=== PATIENT | female | born 1950 | race Caucasian/White ===

== ENCOUNTER 2022-08-28 12:21 | Emergency (ER) | payer MEDICARE, SELFPAY ==
[2022-08-28 12:26] VITALS: BP 215/100; PULSE 71; RESP 18; TEMP 36.7; O2SAT 98; BMI 28.5
--- NOTE | 2022-08-28 12:33 | ED_ITS ---
HPI - Headache General: Chief Complaint: Headache Stated Complaint: BC sent for migraines Time Seen by Provider: 08/28/22 12:33 History of Present Illness: Ms Reyes is a 71-year-old lady with history of headaches presenting to the emergency department for atypical headache. She r eports migraines as a child and very infrequent headaches since that time. Typically when she does get a headache it is right frontal throbbing with associated generalized malaise however improves with sleep. She notes headache onset gradually approximately 4 days ago which has persisted. She has unsteady feeling when she walks and also word finding difficulty which is atypical for her headaches. She was seen at [facility] and referred to the emergency department for further evaluation. Intensity symptoms is moderate to severe. Course has persisted. No other specific changes in health, exacerbating, or alleviating factors identified. Onset (ago): day(s) Onset description: gradually Location: frontal Severity: moderate Quality & Timing: throbbing Exacerbating factors: none Relieving factors: nothing Associated symptoms: Reports eye redness, malaise and other Review of Systems General: Reports: 10 or more systems reviewed and unremarkable except in HPI and below Const: Reports: malaise PFS ED PFSH: Medical History (Updated 09/05/22 @ 00:00 by DAE Gann) No significant past medical history Surgical History (Updated 08/28/22 @ 13:02 by Gavin Sanchez MD) No significant past surgical history Physical Exam Const: COMMON NORMALS: patient oriented x3 and alert GENERAL APPEARANCE: cooperative and well developed HENMT: COMMON NORMALS: normocephalic and atraumatic HEAD & SCALP: norm ocephalic and atraumatic THROAT: posterior oropharynx normal Eye: COMMON NORMALS: conjunctivae normal CONJUNCTIVA: Yes conjunctivae normal SCLERA: sclerae normal Neck/C-Spine: COMMON NORMALS: supple GENERAL: Yes trachea midline Resp: COMMON NORMALS: clear to auscultation bilaterally EFFORT & INSPECTION: Yes able to speak in complete sentences AUSCULTATION: clear to auscultation bilaterally Cardio: COMMON NORMALS: regular rate and regular rhythm RATE: regular rate RHYTHM: regular rhythm GI: COMMON NORMALS: Soft to palpation PALPATION: Yes Soft to palpation and No Tenderness to palpation present (GI) Extremity: GENERAL: Yes normal exam except as noted and No edema Neuro: COMMON NORMALS: patient oriented x3, CN's II-XII intact bilaterally, moves all extremities, no focal motor deficits and no sensory deficits noted SENSORIUM/ORIENTATION: Yes alert and No Orientation impaired OTHER: Mild word finding difficulty, speech normal Psych: COMMON NORMALS: mental status grossly normal and Normal thought process present THOUGHT PROCESS: Normal thought process present Course Vital Signs: Vital signs: Vital Signs Temperature 98.0 F 08/28/22 12:26 Pulse Rate 70 08/28/22 14:07 Respiratory Rate 18 08/28/22 12:26 Blood Pressure 183/104 08/28/22 14:51 Pulse Oximetry 98 08/28/22 14:07 Oxygen Delivery Me thod 08/28/22 14:07 MDM - Headache Medical Decision Making 71-year-old lady presenting for headache. No focal neurologic deficits apprecia anna. No meningismus. Headache is atypical in various ways for patient. No leukocytosis or other significant hematologic abnormalities. Metabolic panel with mild hypokalemia. No UTI. CT head is negative for acute pathology, incidental findings discussed. Patient had resolution of headache with migraine cocktail. Most likely etiology of symptoms is headache secondary to headache disorder. The results of ED evaluation were discussed with the patient including prescriptions and/or symptomatic cares (if applicable) including appropriate and responsible use, followup plan, and return precautions. The patient verbalized understanding and felt safe for discharge. Medical Records I reviewed the patient's medical records. Lab Data I reviewed the patient's lab results. 08/28/22 13:06 08/28/22 13:[address] 08/28/22 12:57 IMPRESSION: No CT evidence of acute intracranial hemorrhage, mass or acute infarction. Laboratory Results WBC 8.4 10^3/uL (4.0-10.0) 08/28/22 13:06 RBC 4.99 10^6/uL (4.1-5.3) 08/28/22 13:06 Hgb 14.3 g/dL (11.5-15.3) 08/28/22 13:06 Hct 45.4 % (37.0-47.0) 08/28/22 13:06 MCV 91.0 fl (81-99) 08/28/22 13:06 MCH 28.7 pg (28.0-34.0) 08/28/22 13:06 MCHC 31.5 g/dL (30.0-36.0) 08/28/22 13:06 RDW 12.8 % (12.1-15.1) 08/28/22 13:06 Plt Count 321 10^3/cmm (130-400) 08/28/22 13:06 MPV 11.4 fL (7.4-10.4) H 08/28/22 13:06 Neut % (Auto) 57.0 % 08/28/22 13:06 Lymph % (Auto) 29.3 % 08/28/22 13:06 [place] % (Auto) 8.2 % 08/28/22 13:06 Eos % (Auto) 3.7 % 08/28/22 13:06 Baso % (Auto) 1.4 % 08/28/22 13:06 Neut # (Auto) 4.77 10^3/uL (1.8-7.7) 08/28/22 13:06 Lymph # (Auto) 2.5 10^3/uL (0.8-4.8) 08/28/22 13:06 [place] # (Auto) 0.7 10^3/uL (0.2-0.9) 08/28/22 13:06 Eos # (Auto) 0.3 10^3/uL (0.0-0.8) 08/28/22 13:06 Baso # (Auto) 0.1 10^3/uL (0.0-0.1) 08/28/22 13:06 Nucleated RBC % (auto) 0 % 08/28/22 13:06 Nucleated RBCs # 0.0 /100WBC 08/28/22 13:06 Sodium 136 mmol/L (136-145) 08/28/22 13:06 Potassium 3.1 mmol/L (3.5-5.1) L 08/28/22 13:06 Chloride 98 mmol/L (98-107) 08/28/22 13:06 Carbon Dioxide 27 mmol/L (22-29) 08/28/22 13:06 Anion Gap 14.1 (5-19) 08/28/22 13:06 BUN 15 mg/dL (8-23) 08/28/22 13:06 Creatinine 0.6 mg/dL (0.5-0.9) 08/28/22 13:06 GFR Calculation Not Reportable 08/28/22 13:06 Glucose 90 mg/dL (65-115) 08/28/22 13:06 Calculated Osmolality 282 mOsm/kg (285-295) L 08/28/22 13:06 Calcium 10.4 mg/dL (8.5-10.5) 08/28/22 13:06 Total Bilirubin 0.3 mg/dL (0.15-1.2) 08/28/22 13:06 AST 21 U/L (0-32) 08/28/22 13:06 ALT 18 U/L (0-33) 08/28/22 13:06 Alkaline Phosphatase 76 U/L (35-105) 08/28/22 13:06 Total Protein 8.4 g/dL (6.6-8.7) 08/28/22 13:06 Albumin 4.5 g/dL (3.5-5.2) 08/28/22 13:06 Globulin 3.9 g/dL (1.3-4.6) 08/28/22 13:06 TSH 3.16 uIU/mL (0.27-4.20) 08/28/22 13:06 Urine Color Straw (Yellow) 08/28/22 13:29 Urine Appearance Clear (CLEAR) 08/28/22 13:29 Urine pH 8 (5-7) H 08/28/22 13:29 Ur Specific [place] 1.015 (1.005-1.030) 08/28/22 13:29 Urine Protein Neg (Negative) 08/28/22 13:29 Urine Glucose (UA) Norm (Normal) 08/28/22 13:29 Urine Ketones Negative (Negative) 08/28/22 13:29 Urine Blood Neg (Negative) 08/28/22 13:29 Urine Nitrate Negative (Negative) 08/28/22 13:29 Urine Bilirubin Neg (Negative) 08/28/22 13:29 Prot Sulfosalicylic Acd Negative (Negative) 08/28/22 13:29 Urine Urobilinogen Norm mg/dL (Negative) 08/28/22 13:29 Ur Leukocyte Esterase Negative (Negative) 08/28/22 13:29 Discharge Plan Discharge Patient Disposition: Home Clinical Impression: Headache Condition: Stable Prescriptions: No Action No Known Home Medications Discharge Orders: Discharge ED (Routine); Ordered 08/28/22 Ordered By: Gavin Sanchez Referrals: Iram Fine, [Primary Care Provider] - Discharge Diet: Usual diet Discharge Activity: Increase activity as tolerated Patient Instructions: Migraine Headache (ED) Activity Restrictions/Additional Instructions: Thank you for visiting the emergency department. You were seen and evaluated for headache and associated symptoms. The exact cause of your symptoms is unclear though likely related to underlying headache disorder. We are pleased that this has improved. As discussed your blood pressure was noted to be high, please follow-up with your primary care provider. Return to the emergency department for uncontrolled symptoms, any new neurologic symptoms, or anything else that you are concerned about and feel needs emergency department evaluation. Coding Level of Care Code ED Nut Tightener for Taylor Reina
--- NOTE | 2022-08-28 12:57 | CTR_ITS ---
PROCEDURE INFORMATION: Exam: CT Head Without Contrast Exam date and time: 08/28/2022 1:36 PM Age: 71 years old Clinical indication: Pain; Altered mental status/memory loss; Confusion or disorientation; Headache not specified; Additional info: Unsteady, word finding difficulty, change in headache TECHNIQUE: Imaging protocol: Computed tomography of the head without contrast. Radiation optimization: All CT scans at this facility use at least one of these dose optimization techniques: automated exposure control; mA and/or kV adjustment per patient size (includes targeted exams where dose is matched to clinical indication); or iterative reconstruction. Other protocol: This patient has received 0 known CTs and 0 known cardiac nuclear medicine studies in the 12 months prior to the current study. COMPARISON: No relevant prior studies available. RADIATION DOSE METRICS: Total DLP (mGy-cm): 1100.28 FINDINGS: Brain: No acute intracranial hemorrhage. No edema. No mass effect. There are small ill-defined hypodense areas in the bilateral periventricular white matter suggestive of chronic small vessel ischemic changes. The sulci are dilated in keeping with mild predominantly peripheral brain atrophy. Peripheral subarachnoid space is dilated in the posterior fossa suggestive of peripheral cerebellar atrophy. There is developmental variant of slightly more prominent on the left side licha cisterna magna. Cerebral ventricles: No ventriculomegaly. Paranasal sinuses: Visualized sinuses are unremarkable. No fluid levels. Mastoid air cells: No mastoid effusion. Bones/joints: No acute fracture. No suspicious lytic or sclerotic bone lesions. Soft tissues: Unremarkable. CT/CT head wo con* [id number] IMPRESSION: No CT evidence of acute intracranial hemorrhage, mass or acute infarction.
[2022-08-28] MEDS: sodium chloride 0.9% 1,000 ML 999 ML IV (13:23)
[2022-08-28 13:40] LABS: Add Urine Microscopic? NO; Charge for UA Resulting for Rev
[2022-08-28 13:45] LABS: Bilirubin Urine Neg (Negative); Blood Urine Neg (Negative); Glucose Urine UA Norm (Normal); Ketones Urine Negative (Negative); Leukocyte Esterase Urine Negative (Negative); Nitrate Urine Negative (Negative); Protein Urine Neg (Negative); Specific Gravity, Urine 1.015 (1.005-1.030); Sulfosalicylic Acid Urine Negative (Negative); Urine Appearance Clear (CLEAR); Urine Color Straw (Yellow); Urobilinogen Urine Norm (Negative); pH Urine 8 (5-7)
[2022-08-28 14:01] LABS: Basophils # 0.1 10^3/uL (0.0-0.1); Basophils % 1.4 %; Eosinophils # 0.3 10^3/uL (0.0-0.8); Eosinophils % 3.7 %; Hematocrit 45.4 % (37.0-47.0); Hemoglobin 14.3 g/dL (11.5-15.3); Lymphocytes # 2.5 10^3/uL (0.8-4.8); Lymphocytes % 29.3 %; Mean Corpuscular HGB Conc 31.5 g/dL (30.0-36.0); Mean Corpuscular Hemoglobin 28.7 pg (28.0-34.0); Mean Platelet Volume 11.4 fL (7.4-10.4); Monocytes # 0.7 10^3/uL (0.2-0.9); Monocytes % 8.2 %; Neutrophils # 4.77 10^3/uL (1.8-7.7); Nucleated Red Blood Cells % 0 %; Platelet Count 321 10^3/cmm (130-400); Red Blood Count 4.99 10^6/uL (4.1-5.3); Red Cell Distribution Width 12.8 % (12.1-15.1); White Blood Count 8.4 10^3/uL (4.0-10.0)
[2022-08-28 14:07] VITALS: BP 183/94; PULSE 70; O2SAT 98
[2022-08-28 14:32] LABS: Alanine Aminotransferase 18 U/L (0-33); Albumin Level 4.5 g/dL (3.5-5.2); Alkaline Phosphatase 76 U/L (35-105); Anion Gap 14.1 (5-19); Aspartate Amino Transferase 21 U/L (0-32); Blood Urea Nitrogen 15 mg/dL (8-23); Calcium 10.4 mg/dL (8.5-10.5); Carbon Dioxide 27 mmol/L (22-29); Chloride 98 mmol/L (98-107); Globulin 3.9 g/dL (1.3-4.6); Glucose 90 mg/dL (65-115); Osmolality Calculated 282 mOsm/kg (285-295); Potassium 3.1 mmol/L (3.5-5.1); Sodium 136 mmol/L (136-145); Thyroid Stimulating Hormone 3.16 uIU/mL (0.27-4.20); Total Bilirubin 0.3 mg/dL (0.15-1.2); Total Protein 8.4 g/dL (6.6-8.7)
[2022-08-28 14:51] VITALS: BP 183/104
== END 2022-08-28 15:12 | disposition home or self-care (01) ==
PROVIDERS: Emergency Provider Emergency Medicine; PCP Family Medicine
DX: R51.9 Headache, unspecified (principal)
CPT/HCPCS: 70450; 80053; 81003; 84443; 85025; 96360; 99285; J7030

== ENCOUNTER 2023-02-25 10:38 | Outpatient (CLI) | payer MEDICARE, SELFPAY ==
--- NOTE | 2023-02-25 10:51 | XR_ITS ---
WS: [id number] Right knee, 3 views, 02/25/2023 Clinical Data: CHRONIC PAIN OF BOTH KNEES Comparison: Right knee, 04/11/2019. Findings: There is medial joint compartment narrowing with a spur of the medial femoral condyle and medial tibi al plateau. There our small spurs of the posterior right patella. There are no fractures or dislocations. The sof t tissues are normal. Impression: Mild osteoarthritis of the right knee. Kellgren-Bar Classification: grade 1 (doubtful): doubtful joint space narrowing and possible ost eophytic lipping
--- NOTE | 2023-02-25 10:51 | XR_ITS ---
WS: [id number] Left knee, 3 views, 02/25/2023 Clinical Data: CHRONIC PAIN OF BOTH KNEES Comparison: Left knee, 04/11/2019 Findings: There is medial joint compartment narrowing with spurring of the medial tibial plateau and medial fem oral condyle. There is a spur of the lateral femoral condyle and lateral tibial plateau. There is irregularity of the posterior left patella. There are no fractures or dislocations. The soft tissues are normal. Impression: Mild osteoarthritis of the left knee. Kellgren-Bar Classification: grade 2 (minimal): definite osteophytes and possible joint space na rrowing
== END 2023-02-25 10:39 | disposition home or self-care (01) ==
PROVIDERS: PCP Family Medicine; Visit Provider Nurse Practitioner
DX: M17.0 Bilateral primary osteoarthritis of knee (principal); G89.29 Other chronic pain
CPT/HCPCS: 73562

== ENCOUNTER 2023-05-24 12:54 | Outpatient (CLI) | payer MEDICARE, SELFPAY ==
--- NOTE | 2023-05-24 13:09 | XR_ITS ---
WS: [id number] SCREENING DEXA SCAN [facility] CLINICAL INFORMATION: AGE RELATED OSTEOPOROSIS W/O FRACTURE COMPARISON: None. FINDINGS: The L1-L4 bone mineral density measures 1.051 g/cm2. This corresponds to a T score score of -1.1 and Z score of 0.4. Left femoral neck bone mineral density measures 0.709 g/cm2. This corresponds to a T score of -2.4 an d Z score of -0.8. Right femoral neck bone mineral density measures 0.744 g/cm2. This corresponds to a T score -2.1of an d Z score of -0.6. Mean femoral neck bone mineral density measures 0.727 g/cm2. This corresponds to a T score of -2.2 an d Z score of -0.7. IMPRESSION: Osteopenia lumbar spine. Osteopenia femoral necks approaching osteoporosis. Patient's FRAX calculated 10 year probability for major osteoporotic fracture is 25.1% and osteoporotic hip fracture is 7.8%.
== END 2023-05-24 12:55 | disposition home or self-care (01) ==
PROVIDERS: PCP Family Medicine; Visit Provider Family Medicine
DX: M81.0 Age-related osteoporosis without current pathological fracture (principal)
CPT/HCPCS: 77080

== ENCOUNTER 2024-02-27 10:35 | Outpatient (CLI) | payer MEDICARE, SELFPAY ==
--- NOTE | 2024-02-27 10:47 | XRR_ITS ---
PROCEDURE INFORMATION: Exam: XR Right Hip Exam date and time: 02/27/2024 10:51 AM Age: 73 years old Clinical indication: Injury or trauma; Blunt trauma (contusions or hematomas); Does not apply; Sacrum; Injury date: 2 days ago; Injury details: --x2 days fall, pain in width of lower back and upper posterior right hip pain; Additional info: Fall - landing on sacrum TECHNIQUE: Imaging protocol: Radiologic exam of the right hip. Views: 1 view hip with pelvis when performed. COMPARISON: CR XR lumbar spine 2-3V* [id number] 02/27/2024 10:51 AM FINDINGS: Bones/joints: Unremarkable. No acute fracture. Mild degenerative changes. No lytic or sclerotic bone lesion. Mild deformity of the pubic symphysis probably represents old trauma. Soft tissues: Unremarkable. XR/XR hip RT 2-3V wo/w pel* [id number] IMPRESSION: No acute findings.
--- NOTE | 2024-02-27 10:47 | XRR_ITS ---
PROCEDURE INFORMATION: Exam: XR Lumbosacral Spine Exam date and time: 02/27/2024 10:51 AM Age: 73 years old Clinical indication: Injury or trauma; Blunt trauma (contusions or hematomas); Injury details: --x2 days fall, pain in width of lower back and upper posterior right hip pain; Additional info: Fall landing on sacrum TECHNIQUE: Imaging protocol: Radiologic exam of the lumbosacral spine. Views: 2 or 3 views. COMPARISON: CR XR hip RT 2-3V wo/w pel* [id number] 02/27/2024 10:51 AM FINDINGS: Bones/joints: 20% upper endplate compression of L2, 20% upper endplate compression of T12. Both of these are likely remote. No. L5-S1 disc space narrowing. L1-L2 disc space narrowing and spurring. The pedicles are intact. Soft tissues: Perivertebral soft tissues are normal.. XR/XR lumbar spine 2-3V* [id number] IMPRESSION: Two compression fractures, likely remote. Mild degenerative disc disease. The
== END 2024-02-27 10:36 | disposition home or self-care (01) ==
LOC: RAD 10:42
PROVIDERS: PCP Family Medicine
DX: M51.36 Other intervertebral disc degeneration, lumbar region (principal); M48.061 Spinal stenosis, lumbar region without neurogenic claudication; M51.04 Intervertebral disc disorders with myelopathy, thoracic region; M25.551 Pain in right hip; W19.XXXA Unspecified fall, initial encounter
CPT/HCPCS: 72100; 73502

== ENCOUNTER → 2024-03-08 09:00 | Outpatient (BNVA) | payer MEDICARE, SELFPAY | PROVIDERS: PCP Family Medicine; Visit Provider Orthopaedic Surgery | DX: M48.54XA Collapsed vertebra, not elsewhere classified, thoracic region, initial encounter for fracture (principal); M54.9 Dorsalgia, unspecified; W18.39XA Other fall on same level, initial encounter | CPT/HCPCS: 72070; 72100; 99204 ==

== ENCOUNTER 2024-03-13 12:37 | Outpatient (CLI) | payer MEDICARE, SELFPAY ==
--- NOTE | 2024-03-13 13:00 | MR_ITS ---
WS: [id number] MRI LUMBAR SPINE NONCONTRAST TECHNIQUE: Sagittal T1, T2 and STIR imaging. Axial T1 and T2 imaging. CLINICAL INFORMATION: back pain COMPARISON: Radiograph 03/08/2024 FINDINGS: Mild lumbar curve. Mild acute compression superior endplate T12 with diffuse edema. Loss of approxima te 20% vertebral body height. Minimal retropulsion of the posterior superior cortex with slight effac ement of the ventral thecal sac. No high-grade central canal stenosis. Chronic endplate deformity L2 with endplate Schmorl's node. Incidental Tarlov cyst in the sacrum. L1-L2: Normal. L2-L3: Mild annular bulging. Mild facet arthropathy. Spinal canal and foramina are patent. L3-L4: Mild annular bulging. Slight narrowing of the RIGHT subarticular recess. Mild facet arthropath y. Small RIGHT greater than LEFT foraminal protrusions with mild RIGHT greater than LEFT foraminal na rrowing. L4-L5: Mild annular bulging. Slight effacement of the ventral thecal sac. Mild facet arthropathy. Spi nal canal and foramina are patent. L5-S1: Mild annular bulging with slight effacement of the ventral thecal sac. Mild bilateral foramina l narrowing. Visualized pelvic bony structures: Normal. Paravertebral soft tissues: Normal. MR/MR lumbar spine wo con* [id number] IMPRESSION: 1. Mild acute compression superior endplate T12 with diffuse edema and fractur e cleft in the superior endplate. Loss of approximate 20% vertebral body height . Minimal retropulsion of the posterior superior cortex with slight effacement of the ventral thecal sac. 2. No other acute appearing compression fractures.
== END 2024-03-13 12:38 | disposition home or self-care (01) ==
LOC: RAD 12:38
PROVIDERS: PCP Family Medicine; Visit Provider Orthopaedic Surgery
DX: M54.9 Dorsalgia, unspecified (principal)
CPT/HCPCS: 72148

== ENCOUNTER → 2024-03-20 08:29 | Outpatient (BNVA) | payer MEDICARE, SELFPAY | PROVIDERS: PCP Family Medicine; Visit Provider Orthopaedic Surgery | DX: S32.020A Wedge compression fracture of second lumbar vertebra, initial encounter for closed fracture (principal); W18.39XA Other fall on same level, initial encounter | CPT/HCPCS: 99213 ==

== ENCOUNTER → 2024-05-10 10:25 | Outpatient (BNVA) | payer MEDICARE, SELFPAY | PROVIDERS: PCP Family Medicine; Visit Provider Orthopaedic Surgery | DX: S22.080A Wedge compression fracture of T11-T12 vertebra, initial encounter for closed fracture (principal); X58.XXXA Exposure to other specified factors, initial encounter | CPT/HCPCS: 72070; 99213 ==